=== PATIENT | female | born 1975 | race Caucasian/White ===

== ENCOUNTER → 2017-06-11 | Outpatient (CLI) | payer BC ==
--- NOTE | 2017-06-12 13:53 | MM ---
Reason for exam: screening (asymptomatic). Last mammogram was performed 5 years and 6 months ago. History: Patient has history of other cancer at age 26 and had first child at age 34. Benign core biopsy of the left breast. Benign core biopsy of the right breast. Physical Findings: A clinical breast exam by your physician is recommended on an annual basis and results should be correlated with mammographic findings. MG Screening Mammo w CAD Bilateral CC and MLO view(s) were taken. Prior study comparison: November 28, 2011, bilateral digital screening mammo w/CAD. There are two obscured masses on the left breast. The first is in the upper outer quadrant at middle depth measuring 10mm. The second is in the upper inner quadrant measuring 5mm. Asymmetry on the right breast at anterior depth is seen laterally. ASSESSMENT: Incomplete: need additional imaging evaluation, BI-RAD 0 RECOMMENDATION: Special view mammogram of both breasts. (possible ultrasound) If lesion persists on supplemental views, image directed ultrasound is recommended. [facility] will attempt to contact patient to return for supplemental views and ultrasound if indicated.
== END | disposition home or self-care (01) ==
LOC: RADMAMWWP 15:55
PROVIDERS: ATTEND Obstetrics & Gynecology
DX: Z12.31 Encounter for screening mammogram for malignant neoplasm of breast (principal)

== ENCOUNTER → 2017-06-24 | Outpatient (CLI) | payer BC ==
--- NOTE | 2017-06-25 10:35 | MM ---
Reason for exam: additional evaluation requested from abnormal screening. Last mammogram was performed less than 1 month ago. History: Patient has history of other cancer at age 26 and had first child at age 34. Benign core biopsy of the left breast. Benign core biopsy of the right breast. Physical Findings: Nurse Summary: 0.5, 1cm nodule in the right breast at 12 o'clock, nipple (nurse dw). MG 3D Work Up W/Cad WONG Bilateral spot compression CC and LM view(s) were taken. Spot compression MLO view(s) were taken of the left breast. Prior study comparison: June 11, 2017, bilateral MG screening mammo w CAD. November 28, 2011, bilateral digital screening mammo w/CAD. The breast tissue is heterogeneously dense. This may lower the sensitivity of mammography. Two palpable markers right breast 12 o'clock. Very dense tissues could obscure isodense lesions despite 3D images. Further ultrasound evaluation recommended bilaterally. These results were verbally communicated with the patient and result sheet given to the patient on 06/24/17. ASSESSMENT: Incomplete: need additional imaging evaluation, BI-RAD 0 RECOMMENDATION: Ultrasound of both breasts.
--- NOTE | 2017-06-25 14:00 | USB ---
Reason for exam: additional evaluation requested from abnormal screening. History: Patient has history of other cancer at age 26 and had first child at age 34. Benign core biopsy of the left breast. Benign core biopsy of the right breast. US Breast Workup Limited WONG Right breast ultrasound demonstrates a 1.4 x 1.2 x 0.8cm oval, lobular, mixed, palpable lesion at 12 o'clock for which a biopsy is recommended, a 0.5 x 0.4 x 0.4cm oval, cystic lesion at 6 o'clock, a duct at 8 o'clock, a 0.4 x 0.4 x 0.2cm oval lesion too small to characterize at 9 o'clock, a 0.5 x 0.6 x 0.4cm oval, mixed lesion at 11 o'clock, probably fibrocystic change, a 0.5 x 0.5 x 0.3cm oval, mixed lesion at 11 o'clock, probably fibrocystic change, a 0.7 x 0.4 x 0.4cm cystic, benign lesion at areolar BB and a 0.6 x 0.7 x 0.4cm cystic cluster at 11 o'clock, benign. Right breast scanned 6-12 o'clock and 12 o'clock palpables. Left breast ultrasound demonstrates a 0.6 x 0.6 x 0.2cm oval, cystic cluster at 12 o'clock, a 0.5 x 0.4 x 0.3cm oval, cystic lesion at 12 o'clock, a 0.7 x 0.8 x 0.4cm oval, mixed cluster at 2 o'clock for which a 6 month follow up is recommended, a 1.4 x 1.4 x 0.5cm oval, cystic lesion at 3 o'clock and a 0.3 x 0.4 x 0.3cm oval lesion too small to characterize at 10 o'clock. Left breast scanned 9-3 o'clock. These results were verbally communicated with the patient and result sheet given to the patient on 06/24/17. ASSESSMENT: Suspicious, BI-RAD 4 RIGHT: Suspicious, BI-RAD 4 abnormality in the right breast. LEFT: Probably benign, BI-RAD 3 finding in the left breast. RECOMMENDATION: 1. Surgical consultation and ultrasound core biopsy of the right breast (12 o' clock 1.4cm lesion). 2. Ultrasound of the left breast in 6 months (attention 2 o'clock). Called Dr. Rajput with mammographic findings and has scheduled an appointment for the patient for 07/17/17 at 10:[address] Petersen. Biopsy scheduled for 07/07/17 at 2:20. PRELIMINARY REPORT CALLED AND FAXED TO DR. PETERSEN ON 06/25/17. [facility]ITAL[facility]is
== END | disposition home or self-care (01) ==
LOC: RADMAMWWP 15:44
PROVIDERS: ATTEND Obstetrics & Gynecology
DX: R92.8 Other abnormal and inconclusive findings on diagnostic imaging of breast (principal)
CPT/HCPCS: 76642; G0204; G0279

== ENCOUNTER → 2018-01-20 | Outpatient (CLI) | payer BC ==
--- NOTE | 2018-01-21 13:32 | USB ---
Reason for exam: follow-up at short interval from prior study. History: Patient has history of other cancer at age 26 and had first child at age 34. Benign US biopsy breast VAD RT of the right breast, July 07, 2017. Benign core biopsy of the left breast. Benign core biopsy of the right breast. Physical Findings: Nurse Summary: 0.5cm round nodule in the right breast (nurse shari). US Breast BILAT Right complete breast ultrasound includes all four quadrants, the retroareolar region and axilla. Finding demonstrates a 1.3 x 0.9 x 1.2cm oval, solid lesion at 12 o'clock, a 0.4 x 0.3 x 0.4cm oval, cystic lesion at 6 o'clock, a 0.3 x 0.3 x 0.7cm oval, cystic lesion at 7 o'clock, a 0.7 x 0.4 x 0.5cm oval, cystic cluster at 10 o'clock and a 1.2 x 1.0 x 1.0cm oval, cystic lesion at 10 o'clock for which a 6 month follow up is recommended, probable fibroadenoma. Left complete breast ultrasound includes all four quadrants, the retroareolar region and axilla. Finding demonstrates 0.5 x 0.3 x 0.4cm oval, cystic lesion at 2 o'clock, a 1.7 x 0.7 x 1.7cm oval, cystic lesion at 3 o'clock, a 0.7 x 0.4 x 1.0cm oval, cystic lesion at 10 o'clock and a 0.3 x 0.4 x 0.5cm oval, cystic lesion at 8 o'clock. These results were verbally communicated with the patient and result sheet given to the patient on 01/20/18. ASSESSMENT: Probably benign, BI-RAD 3 RECOMMENDATION: Follow-up diagnostic mammogram of both breasts in 6 months. Ultrasound of the right breast in 6 months.
== END | disposition home or self-care (01) ==
LOC: RADUSWWP 14:24
PROVIDERS: ATTEND Surgery
DX: R92.8 Other abnormal and inconclusive findings on diagnostic imaging of breast (principal)

== ENCOUNTER → 2018-07-23 | Outpatient (CLI) | payer BC ==
--- NOTE | 2018-07-23 15:04 | MM ---
Reason for exam: additional evaluation requested from prior study. Last mammogram was performed 1 year and 1 month ago. History: Patient has history of other cancer at age 26 and had first child at age 34. Benign US biopsy breast VAD RT of the right breast, July 07, 2017. Benign core biopsy of the left breast. Benign core biopsy of the right breast. Physical Findings: Nurse Summary: 0.5cm nodule in the left breast at 4 o'clock (nurse mj). MG Diagnostic Mammo w CAD WONG Bilateral CC and MLO view(s) were taken. Prior study comparison: July 07, 2017, right breast MG diagnostic mammo RT wo CAD. June 24, 2017, bilateral MG 3d work up w/cad WONG. The breast tissue is heterogeneously dense. This may lower the sensitivity of mammography. Previous ultrasound biopsy in the right breast. There is chronic nodularity bilaterally. These results were verbally communicated with the patient and result sheet given to the patient on 07/23/18. ASSESSMENT: Incomplete: need additional imaging evaluation, BI-RAD 0 RECOMMENDATION: Ultrasound of both breasts. Manage patient on a clinical basis.
--- NOTE | 2018-07-23 15:07 | USB ---
Reason for exam: additional evaluation requested from abnormal screening. History: Patient has history of other cancer at age 26 and had first child at age 34. Benign US biopsy breast VAD RT of the right breast, July 07, 2017. Benign core biopsy of the left breast. Benign core biopsy of the right breast. US Breast Limited BILAT Right complete breast ultrasound includes all four quadrants, the retroareolar region and axilla. Finding demonstrates a 1.2 x 1.0 x 1.1cm mixed lesion at 12 o'clock, a 0.5 x 0.2 x 0.4cm lesion too small to characterize at 3 o'clock, a 0.3 x 0.3 x 0.3cm lesion too small to characterize at 6 o'clock, a 0.3 x 0.2 x 0.3cm lesion too small to characterize at 7 o'clock, a 0.8 x 0.3 x 0.5cm cystic lesion at 10 o'clock and a 0.5 x 0.3 x 0.8cm cystic lesion at 10 o'clock. Left limited breast ultrasound including focal area of concern, retroareolar and axilla demonstrates a 1.8 x 0.5 x 1.4cm cystic lesion at 3 o'clock and a 0.5 x 0.2 x 0.4cm cystic lesion at 5 o'clock. These results were verbally communicated with the patient and result sheet given to the patient on 07/23/18. ASSESSMENT: Benign, BI-RAD 2 RECOMMENDATION: Routine screening mammogram of both breasts in 1 year. Manage patient on a clinical basis.
== END ==
LOC: RADMAMWWP 13:19
PROVIDERS: ATTEND Surgery
DX: R92.8 Other abnormal and inconclusive findings on diagnostic imaging of breast (principal)
CPT/HCPCS: 77066

== ENCOUNTER → 2019-07-29 | Outpatient (CLI) | payer BC ==
--- NOTE | 2019-08-02 09:35 | MM ---
Reason for exam: screening (asymptomatic). Last mammogram was performed 1 year ago. History: Patient has history of other cancer at age 26 and had first child at age 34. Benign US biopsy breast VAD RT of the right breast, July 07, 2017. Benign core biopsy of the left breast. Benign core biopsy of the right breast. Physical Findings: A clinical breast exam by your physician is recommended on an annual basis and results should be correlated with mammographic findings. MG Screening Mammo w CAD Bilateral CC and MLO view(s) were taken. Prior study comparison: July 23, 2018, bilateral MG diagnostic mammo w CAD WONG. July 07, 2017, right breast MG diagnostic mammo RT wo CAD. The breast tissue is heterogeneously dense. This may lower the sensitivity of mammography. Previous mammotome biopsy in the right breast. 1.4 x 0.8cm partially circumscribed, partially obscured nodule centrally right CC view not clearly seen on the MLO view. ASSESSMENT: Incomplete: need additional imaging evaluation, BI-RAD 0 RECOMMENDATION: Special view mammogram of the right breast. (3D) If lesion persists on supplemental views, image directed ultrasound is recommended. [facility] will attempt to contact patient to return for supplemental views and ultrasound if indicated.
== END | disposition home or self-care (01) ==
LOC: RADMAMWWP 12:34
PROVIDERS: ATTEND Obstetrics & Gynecology
DX: Z12.31 Encounter for screening mammogram for malignant neoplasm of breast (principal)
CPT/HCPCS: 77067

== ENCOUNTER → 2019-08-13 | Outpatient (CLI) | payer BC ==
--- NOTE | 2019-08-16 08:21 | MM ---
Reason for exam: additional evaluation requested from abnormal screening. Last mammogram was performed less than 1 month ago. History: Patient has history of other cancer at age 26 and had first child at age 34. Benign US biopsy breast VAD RT of the right breast, July 07, 2017. Benign core biopsy of the left breast. Benign core biopsy of the right breast. Physical Findings: Nurse Summary: 2cm and 1cm nodule in the right breast at 12 o'clock (nurse marylu). MG Work Up Mamm w CAD RT Spot compression CC, spot compression MLO, and LM view(s) were taken of the right breast. Prior study comparison: July 29, 2019, bilateral MG screening mammo w CAD. July 23, 2018, bilateral MG diagnostic mammo w CAD WONG. The breast tissue is heterogeneously dense. This may lower the sensitivity of mammography. Right 1.4cm mass is stable back to 2016. These results were verbally communicated with the patient and result sheet given to the patient on 08/13/19. ASSESSMENT: Incomplete: need additional imaging evaluation, BI-RAD 0 RECOMMENDATION: Ultrasound of the right breast. (palpable)
--- NOTE | 2019-08-16 08:24 | USB ---
Reason for exam: additional evaluation requested from abnormal screening. History: Patient has history of other cancer at age 26 and had first child at age 34. Benign US biopsy breast VAD RT of the right breast, July 07, 2017. Benign core biopsy of the left breast. Benign core biopsy of the right breast. US Breast Workup Limited RT Right limited breast ultrasound including focal area of concern, retroareolar and axilla demonstrates a 1.2 x 0.9 x 1.0cm cystic, mixed, hypoechoic lesion at 12 o'clock some increase through transmission, appears stable on mammogram, a 0.5 x 0.5 x 0.3cm cystic lesion at 12 o'clock (prior 1.2 x 1.0 x 1.4cm) and a 1.2 x 1.4 x 1.1cm solid lesion at the nipple. These results were verbally communicated with the patient and result sheet given to the patient on 08/13/19. ASSESSMENT: Benign, BI-RAD 2 RECOMMENDATION: Return to routine screening mammogram schedule for both breasts.
== END | disposition home or self-care (01) ==
LOC: RADMAMWWP 13:58
PROVIDERS: ATTEND Obstetrics & Gynecology
DX: R92.8 Other abnormal and inconclusive findings on diagnostic imaging of breast (principal)
CPT/HCPCS: 77065

== ENCOUNTER → 2021-09-14 | Outpatient (CLI) | payer BC, OTHER ==
--- NOTE | 2021-09-18 08:29 | MM ---
Reason for exam: screening (asymptomatic). Last mammogram was performed 2 years and 1 month ago. History: Patient has history of other cancer at age 26 and had first child at age 34. Benign US biopsy breast VAD RT of the right breast, July 07, 2017. Benign core biopsy of the left breast. Benign core biopsy of the right breast. Physical Findings: A clinical breast exam by your physician is recommended on an annual basis and results should be correlated with mammographic findings. MG 3D Screening Mammo W/Cad Bilateral CC and MLO view(s) were taken. Prior study comparison: August 13, 2019, right breast MG work up mamm w CAD RT. July 29, 2019, bilateral MG screening mammo w CAD. July 23, 2018, bilateral MG diagnostic mammo w CAD WONG. June 11, 2017, bilateral MG screening mammo w CAD. The breast tissue is extremely dense which could obscure a lesion on mammography. Finding: There are new grouped/clustered calcifications in the outer quadrant, middle position of the left breast. Previous mammotome biopsy in the right breast. New finding since August 13, 2019, July 23, 2018, and June 11, 2017. ASSESSMENT: Incomplete: need additional imaging evaluation, BI-RAD 0 RECOMMENDATION: Special view mammogram of the left breast. [facility] will attempt to contact patient to return for supplemental views.
== END | disposition home or self-care (01) ==
LOC: RADMAMWWP 11:00
PROVIDERS: ATTEND Obstetrics & Gynecology
DX: Z12.31 Encounter for screening mammogram for malignant neoplasm of breast (principal)
CPT/HCPCS: 77063; 77067

== ENCOUNTER → 2021-10-22 | Outpatient (CLI) | payer BC, OTHER ==
--- NOTE | 2021-10-23 08:29 | MM ---
Reason for exam: additional evaluation requested from abnormal screening. Last mammogram was performed 1 month ago. History: Patient has history of other cancer at age 26 and had first child at age 34. Benign US biopsy breast VAD RT of the right breast, July 07, 2017. Benign core biopsy of the left breast. Benign core biopsy of the right breast. Physical Findings: A clinical breast exam by your physician is recommended on an annual basis and results should be correlated with mammographic findings. MG 3D Work Up W/Cad LT CC, MLO, ML, ML with magnification, and CC with magnification view(s) were taken of the left breast. Prior study comparison: September 14, 2021, bilateral MG 3d screening mammo w/cad. August 13, 2019, right breast MG work up mamm w CAD RT. The breast tissue is heterogeneously dense. This may lower the sensitivity of mammography. Tiny 3mm grouped calcification 12 o'clock left breast has the appearance of an early oil cyst on magnification views. 1 year follow up recommended. ASSESSMENT: Probably benign, BI-RAD 3 RECOMMENDATION: Follow-up diagnostic mammogram of both breasts in 1 year.
== END | disposition home or self-care (01) ==
LOC: RADMAMWWP 09:58
PROVIDERS: ATTEND Obstetrics & Gynecology
DX: R92.8 Other abnormal and inconclusive findings on diagnostic imaging of breast (principal)
CPT/HCPCS: 77061; 77065

== ENCOUNTER → 2023-02-21 | Outpatient (CLI) | payer BC, OTHER ==
--- NOTE | 2023-02-21 11:31 | USB ---
Reason for Exam: Additional evaluation requested from abnormal screening. Patient History: Menarche at age 11. First Full-Term at age 34. Late child-bearing (after 30). Patient has history of breast feeding. Benign Core Biopsy on the right side. Benign Core Biopsy on the left side. 07/07/2017, Benign Core Biopsy on the right side. Risk Values: Ely 5 year model risk: 2.4%. NCI Lifetime model risk: 18.6%. Technique: Method: Targeted. Prior Study Comparison: 08/13/2019 Right Diagnostic Mammogram, [facility]. 09/14/2021 Bilateral Screening Mammogram, [facility]. 10/22/2021 Left Diagnostic Mammogram, [facility]. Findings: The upper outer quadrant of the left breast, the axilla of the left breast and the retroareolar of the left breast were scanned. Multiple simple cysts are noted. At the 1:00 position 3 cm from the nipple 6 x 6 mm. At the left 1:00 position 3 cm from the nipple 1.2 x 1.0 x 0.4 cm. At the 3:00 position 3 cm from the nipple measuring 1.3 x 0.6 cm. 12:00 position 5 cm from the nipple measuring 5 x 5 mm. No solid masses seen. Overall Assessment: Benign, BI-RAD 2 Management: Screening Mammogram of both breasts in 1 year. A clinical breast exam by your physician is recommended on an annual basis and results should be correlated with mammographic findings. This exam should not preclude additional follow-up of suspicious palpable abnormalities. Results were given to the patient verbally at the time of exam. Electronically signed and approved by: Hernan Barajas M.D. Radiologis
--- NOTE | 2023-02-21 14:39 | MM ---
Reason for Exam: Follow-up at short interval from prior study. Last mammogram was performed 1 year(s) and 5 month(s) ago. Patient History: Menarche at age 11. First Full-Term at age 34. Late child-bearing (after 30). Patient has history of breast feeding. Benign Core Biopsy on the right side. Benign Core Biopsy on the left side. 07/07/2017, Benign Core Biopsy on the right side. Risk Values: Ely 5 year model risk: 2.4%. NCI Lifetime model risk: 18.6%. Prior Study Comparison: 06/24/2017 Bilateral Diagnostic Ultrasound, [facility]. 07/07/2017 Right Diagnostic Mammogram, [facility]. 01/20/2018 Bilateral Diagnostic Ultrasound, [facility]. 07/23/2018 Bilateral Diagnostic Mammogram, [facility]. 07/23/2018 Bilateral Diagnostic Ultrasound, [facility]. 07/29/2019 Bilateral Screening Mammogram, [facility]. 08/13/2019 Right Diagnostic Mammogram, [facility]. 08/13/2019 Right Diagnostic Ultrasound, [facility]. 09/14/2021 Bilateral Screening Mammogram, [facility]. 10/22/2021 Left Diagnostic Mammogram, [facility]. Tissue Density: The breast tissue is heterogeneously dense. This may lower the sensitivity of mammography. Findings: Analyzed By CAD. Microclip marker right breast from prior biopsy. Nodular density upper outer left breast measures approximately 1.1 cm and 3.1 cm from the nipple. Ultrasound left breast is advised. Overall Assessment: Incomplete: need additional imaging evaluation, BI-RAD 0 Management: Diagnostic Breast Ultrasound of the left breast. . Results were given to the patient verbally at the time of exam. Patient should continue monthly self-breast exams. A clinical breast exam by your physician is recommended on an annual basis. This exam should not preclude additional follow-up of suspicious palpable abnormalities. Note on Ely scores and lifetime risk: 1. A Ely score greater than 3% is considered moderate risk. If this is the case, consider specialist referral to assess eligibility for a risk reducing agent. 2. If overall lifetime risk for the development of breast cancer is 20% or higher, the patient may qualify for future screening with alternating mammogram and breast MRI. Electronically signed and approved by: Hernan Barajas M.D. Radiologis
== END | disposition home or self-care (01) ==
LOC: RADMAMWWP 10:18
PROVIDERS: ATTEND Obstetrics & Gynecology
DX: R92.8 Other abnormal and inconclusive findings on diagnostic imaging of breast (principal)
CPT/HCPCS: 77062; 77066

== ENCOUNTER → 2024-10-23 | Outpatient (CLI) | payer OTHER ==
[2024-10-23 13:19] LABS: Basophils # (A) 0.02 X 10*3/uL (0.00-0.10); Basophils % (A) 0.5 %; Eosinophils # (A) 0.03 X 10*3/uL (0.04-0.35); Eosinophils % (A) 0.7 %; HCT 41.2 % (37.2-46.3); HGB 13.4 g/dL (12.0-15.0); Lymphocytes # (A) 0.98 X 10*3/uL (0.90-5.00); Lymphocytes % (A) 23.9 %; MCH 28.4 pg (27.0-32.0); MCHC 32.5 g/dL (32.0-37.0); MCV 87.3 FL (80.0-97.0); Mean Platelet Volume 9.1 FL (9.5-12.2); Monocytes # (A) 0.27 X 10*3/uL (0.20-1.00); Monocytes % (A) 6.6 %; NRBC Per 100 WBC 0 X 10*3/uL (0.00-0.01); Neutrophils # (A) 2.78 X 10*3/uL (1.80-7.70); Neutrophils % (A) 67.8 %; Platelet Count 212 X 10*3/uL (140-440); RBC 4.72 X 10*6/uL (4.10-5.20); RDW 12.6 % (11.5-14.5)
[2024-10-23 13:37] LABS: ALT 12 U/L (8-44); AST 16 U/L (13-35); Albumin 4.2 g/dL (3.8-4.9); Alkaline Phosphatase 58 U/L (41-126); BUN/Creat Ratio 13.38 Ratio (12.00-20.00); Blood Urea Nitrogen 10.7 mg/dL (9.0-27.0); Calcium 9.5 mg/dL (8.7-10.3); Carbon Dioxide 27.4 mmol/L (21.6-31.8); Chloride 108 mmol/L (96-109); Chol/HDL Ratio 3.05 Ratio; Glucose 99 mg/dL (70-110); LDL Cholesterol,Calculated 104.2 mg/dL (0.0-131.0); Potassium 4.7 mmol/L (3.5-5.5); Sodium 144 mmol/L (135-145); Total Bilirubin 0.5 mg/dL (0.3-1.2); Total Protein 6.2 g/dL (6.2-8.2); Uric Acid 4.7 mg/dL (2.9-7.7); VLDL Calculation 12.06 mg/dL (5.00-40.00)
== END | disposition home or self-care (01) ==
LOC: LABWHC1 09:26
PROVIDERS: ATTEND Internal Medicine
DX: Z00.00 Encounter for general adult medical examination without abnormal findings (principal); Z11.59 Encounter for screening for other viral diseases; M19.071 Primary osteoarthritis, right ankle and foot
CPT/HCPCS: 36415; 80053; 80061; 84443; 84550; 85025; 86803

== ENCOUNTER → 2024-10-25 | Outpatient (CLI) | payer OTHER ==
--- NOTE | 2024-10-25 14:59 | MM ---
Reason for Exam: Screening (asymptomatic). Last mammogram was performed 1 year(s) and 8 month(s) ago. Patient History: Menarche at age 11. First Full-Term at age 34. Late child-bearing (after 30). Postmenopausal. Patient has history of breast feeding. Benign Core Biopsy on the right side. Benign Core Biopsy on the left side. 07/07/2017, Benign Core Biopsy on the right side. Risk Values: Ely 5 year model risk: 2.0%. NCI Lifetime model risk: 17.7%. Prior Study Comparison: 09/14/2021 Bilateral Screening Mammogram, [facility]. 10/22/2021 Left Diagnostic Mammogram, [facility]. 02/21/2023 Bilateral MG 3D diag mammo w/cad WONG, [facility]. Tissue Density: The breasts are heterogeneously dense, which may obscure small masses. Findings: Analyzed By CAD. There is no suspicious group of microcalcifications or new suspicious mass in either breast. Overall Assessment: Benign, BI-RAD 2 Management: Screening Mammogram of both breasts in 1 year. . Patient should continue monthly self-breast exams. A clinical breast exam by your physician is recommended on an annual basis. This exam should not preclude additional follow-up of suspicious palpable abnormalities. Note on Ely scores and lifetime risk: 1. A Ely score greater than 3% is considered moderate risk. If this is the case, consider specialist referral to assess eligibility for a risk reducing agent. 2. If overall lifetime risk for the development of breast cancer is 20% or higher, the patient may qualify for future screening with alternating mammogram and breast MRI. [facility], , 10/25/2024 2:56 PM. Electronically signed and approved by: Hernan Barajas M.D. Radiologis
== END | disposition home or self-care (01) ==
LOC: RADMAMWWP 14:11
PROVIDERS: ATTEND Internal Medicine
DX: Z12.31 Encounter for screening mammogram for malignant neoplasm of breast (principal); R92.333 Mammographic heterogeneous density, bilateral breasts; Z78.0 Asymptomatic menopausal state
CPT/HCPCS: 77063; 77067